=== PATIENT | female | born 1995 | race Caucasian/White ===

== ENCOUNTER 2019-02-01 10:57 | Day surgery (SDC) | payer BC, OTHER ==
[~2019-02-01] VITALS: Ht 167.6 cm; Wt 78.9 kg
[~2019-02-01 10:57] MED LIST: BIRTH CONTROL PILL PO; NITR100CA PO
[2019-02-01] MEDS ORDERED: ESCI10 PO (11:23)
--- NOTE | 2019-02-01 13:19 | NUR ---
02/01/19 1319 Omega Humphrey K-WIRES IN THE PT ARE TWO .054 K-WIRES. THE .062 K-WIRE WAS IN/OUT.
--- NOTE | 2019-02-01 15:25 | NUR ---
Patient up to Ambulate independently. Gait steady. Dressing to procedure site clean, dry, intact with no visible drainage, swelling, erythema or bruising noted. Discharge instructions reviewed with patient. Patient verbalizes understanding. Copy given to patient to take home. Patient States Post-Procedure ride home has been arranged. Discharged via wheelchair to private car for ride home.
== END 2019-02-01 15:28 | disposition home or self-care (01) ==
LOC: ORSCMMR 10:57
PROVIDERS: Orthopaedic Surgery
PROC: 0PSQ34Z Reposition Left Metacarpal with Internal Fixation Device, Percutaneous Approach (ICD-10-PCS; principal; 2019-02-01 12:30)
DX: S62.232A Other displaced fracture of base of first metacarpal bone, left hand, initial encounter for closed fracture (principal)
CPT/HCPCS: A9270-GY; J1100; J2250; J2405; J2704; J3010; J7120

== ENCOUNTER → 2019-06-16 | Outpatient (CLI) | payer BC, OTHER ==
[~2019-06-16] MED LIST changes: +ESCI10 PO
[2019-06-16 09:17] LABS: BASOPHILS ABSOLUTE AUTO 0.07 K/mm3 (0.00-0.23); BASOPHILS PERCENT AUTO 1 % (0-2); EOSINOPHILS ABSOLUTE AUTO 0.11 K/mm3 (0.00-0.68); EOSINOPHILS PERCENT AUTO 1 % (0-6); Hematocrit 41.1 % (33.0-51.0); Hemoglobin 13.7 g/dL (11.5-16.0); IMMATURE GRAN ABSOLUTE AUTO 0.07 K/mm3 (0.00-0.10); IMMATURE GRAN PERCENT AUTO 1 % (0-1); LYMPHOCYTES ABSOLUTE AUTO 1.63 K/mm3 (0.84-5.20); LYMPHOCYTES PERCENT AUTO 15 % (21-46); MONOCYTES ABSOLUTE AUTO 0.58 K/mm3 (0.16-1.47); MONOCYTES PERCENT AUTO 5 % (4-13); Mean Corpuscular HGB 29.5 pg (26.0-34.0); Mean Corpuscular HGB Conc 33.3 g/dL (31.5-36.5); Mean Corpuscular Volume 89 fL (80-100); Mean Platelet Volume 10.9 fL (9.1-12.4); NEUTROPHILS PERCENT AUTO 78 % (41-73); Platelet Count 297 K/mm3 (150-400); RDW Coefficient Variation 12.7 % (11.7-14.2); RDW Standard Deviation 41.1 fL (35.1-46.3); Red Blood Cell Count 4.64 M/mm3 (3.80-5.20); White Blood Cell Count 10.86 K/mm3 (4.00-11.30)
[2019-06-16 09:31] LABS: Alanine Aminotransfer (ALT/SGP 25 U/L (12-78); Albumin, Blood 3.8 g/dL (3.4-5.0); Albumin/Globulin Ratio 0.9 (0.8-1.8); Alk Phos 59 U/L (40-126); Anion Gap 10 mmol/L (6-16); Aspartate Aminotrans (AST/SGOT 13 U/L (12-37); Bilirubin, Total 0.5 mg/dL (0.1-1.0); Blood Urea Nitrogen 10 mg/dL (8-24); Bun/Creatinine Ratio 10.8 (12.0-20.0); CO2, Blood 26 mmol/L (21-32); Calcium, Blood 8.6 mg/dL (8.5-10.1); Chloride, Blood 105 mmol/L (98-108); Creatinine, Blood 0.93 mg/dL (0.40-1.00); Globulin, Blood 4.1 g/dL (2.2-4.0); Glomerular Filtration Rate >60 (60-); Glucose, Blood 92 mg/dL (70-99); Sodium, Blood 141 mmol/L (136-145); Total Protein, Blood 7.9 g/dL (6.4-8.2)
== END | disposition home or self-care (01) ==
LOC: LAB EV 09:12 → LAB SHORT 09:12
PROVIDERS: Physician Assistant
DX: J03.90 Acute tonsillitis, unspecified (principal)
CPT/HCPCS: 80053; 85025; 87081

== ENCOUNTER 2019-12-25 10:20 | Inpatient (IN) | payer BC, OTHER ==
[~2019-12-25] VITALS: Ht 167.6 cm; Wt 66.4 kg
[2019-12-25] MEDS ORDERED: BUPR150ER PO (10:44)
[2019-12-25 10:45] LABS: BASOPHILS ABSOLUTE AUTO 0.09 K/mm3 (0.00-0.23); BASOPHILS PERCENT AUTO 1 % (0-2); EOSINOPHILS ABSOLUTE AUTO 0.08 K/mm3 (0.00-0.68); EOSINOPHILS PERCENT AUTO 1 % (0-6); Hematocrit 40.1 % (33.0-51.0); IMMATURE GRAN ABSOLUTE AUTO 0.05 K/mm3 (0.00-0.10); IMMATURE GRAN PERCENT AUTO 1 % (0-1); LYMPHOCYTES ABSOLUTE AUTO 1.87 K/mm3 (0.84-5.20); LYMPHOCYTES PERCENT AUTO 22 % (21-46); MONOCYTES ABSOLUTE AUTO 0.66 K/mm3 (0.16-1.47); MONOCYTES PERCENT AUTO 8 % (4-13); Mean Corpuscular HGB 29.6 pg (26.0-34.0); Mean Corpuscular HGB Conc 32.4 g/dL (31.5-36.5); Mean Corpuscular Volume 91 fL (80-100); Mean Platelet Volume 10.6 fL (9.1-12.4); NEUTROPHILS PERCENT AUTO 68 % (41-73); Platelet Count 222 K/mm3 (150-400); RDW Coefficient Variation 13.4 % (11.7-14.2); RDW Standard Deviation 45.2 fL (35.1-46.3); Red Blood Cell Count 4.39 M/mm3 (3.80-5.20); White Blood Cell Count 8.65 K/mm3 (4.00-11.30)
[2019-12-25] MEDS ORDERED: Seroquel Xr50 MG PO (10:45)
[2019-12-25] MEDS ORDERED: SUDOGEST PO (10:52)
[2019-12-25 11:02] LABS: Source, Urine Catheter
[2019-12-25 11:03] LABS: Acetaminophen, Random <2.0 ug/mL (10.0-30.0); Ethanol (Alcohol), Blood, Med <3 mg/dL; Salicylate <1.7 mg/dL (2.8-20.0)
[2019-12-25 11:04] LABS: Alanine Aminotransfer (ALT/SGP 23 U/L (12-78); Albumin/Globulin Ratio 1.2 (0.8-1.8); Alk Phos 65 U/L (50-136); Anion Gap 9 mmol/L (6-16); Aspartate Aminotrans (AST/SGOT 19 U/L (12-37); Bilirubin, Total 1.1 mg/dL (0.1-1.0); Blood Urea Nitrogen 9 mg/dL (8-24); Bun/Creatinine Ratio 12.6 (12.0-20.0); CO2, Blood 22 mmol/L (21-32); Calcium, Blood 8.7 mg/dL (8.5-10.1); Chloride, Blood 109 mmol/L (98-108); Creatinine, Blood 0.72 mg/dL (0.40-1.00); Globulin, Blood 3.4 g/dL (2.2-4.0); Glomerular Filtration Rate >60 (60-); Glucose, Blood 111 mg/dL (70-99); Potassium, Blood 3.2 mmol/L (3.5-5.5); Sodium, Blood 140 mmol/L (136-145); Total Protein, Blood 7.4 g/dL (6.4-8.2)
[2019-12-25 11:15] LABS: Bilirubin, Urine Neg (Neg); Blood, Urine 2+ (Neg); Glucose Qualitative, Urine Neg (Neg); Ketones, Urine Neg (Neg); Leukocyte Esterase, Urine Neg (Neg); Nitrite, Urine Neg (Neg); Protein, Urine Neg (Neg); Urobilinogen, Urine NORM (Normal)
[2019-12-25 11:26] LABS: Appearance, Urine Clear (Clear); Color, Urine Yellow (P-Yellow)
[2019-12-25 11:31] LABS: Bacteria Few /hpf; Red Blood Cells, Urine 0-2 /hpf (0-2); Squamous Epithelial Cells Rare /hpf (Few)
[2019-12-25 11:39] LABS: U Amphetamine Screen Not Detected; U Barbituate Screen Not Detected; U Benzodiazapine Screen DETECTED; U Cocaine Screen Not Detected; U Methadone Screen Not Detected; U Methamphetamine Screen Not Detected; U Opiates Screen Not Detected; U Phencyclidine Screen Not Detected
[2019-12-25 11:40] LABS: U Buprenorphine Screen Not Detected; U Cannabinoids Screen DETECTED; U Oxycodone Screen Not Detected; U Propoxyphene Screen Not Detected
--- NOTE | 2019-12-25 19:00 | NUR ---
ASSUMED CARE NOTE: ASSUMED CARE OF PT AT 1900, RECEVIED REPORT FROM JARRETT CASTELLANOS. PT IS DROWSY, UNABLE TO COMMUNICATE NEEDS. MOANS/YELLS INCOHERENTLY. PT IS THRASHING IN BED, UNABLE TO FOLLOW COMMANDS. PT IS IN TATX4 RESTRAINTS, KICKING AND ATTEMPTING TO SIT UP IN BED, FIGHTING RESTRAINTS. PT URINATED SELF, REQUIRED 3 STAFF MEMBERS TO CHANGE LINENS. DURING BED CHANGED PT ATTEMPTED TO KICK AND SWUNG HAND AT STAFF. PT CALMED DOWN WITH THERAPUTIC TOUCH. PT GIVEN ATIVAN FOR AGITATION PER EMAR. PT IS ON RA WITH SPO2 AT 99% PT IN SIT WITH HR AT 105, WHEN CALM HR IN THE 80'S. 1:1 SITTER AT BEDSIDE.
--- NOTE | 2019-12-25 19:45 | NUR ---
CARE ASSUMED/END OF SHIFT PT TO ICU 13 AT 1600, 1:1 MONITORING FOR HIGH RISK SI PRECAUTIONS, PT IN 4 POINT LOCKING RESTRAINTS FOR CONFUSION AND THRASHING, DOES NOT APPEAR TO BE INTENTIONALY TRYING TO HIT OR KICK STAFF AT THIS TIME. HR SIT, THEN DECREASED TO 80'S SINUS WHEN PT SETTLED, BP STABLE, SPO2 >95% ON RA, AFEBRILE. PT HAS BRIEF, INTERMITTENT EPISODES OF SITTING UP IN BED, CALLING OUT, AND PULLING ON RESTRAINTS, IS EASILY REASSURED VERBALLY AND CALMS TO RESTING. UNABLE TO UNDERSTAND PT'S WORDS D/T SLURRING/MUMBLED SPEECH. PT'S MOTHER AT BEDSIDE TO ASSIST WITH ASSESSMENT PAPERWORK, HOLD PAPERWORK COMPLETED. PT RECEIVED 3RD LITER LR BOLUS ON THIS UNIT, EKG COMPLETED AT 1820, RESULTS CALLED TO POISON CONTROL, NO NEW RECOMMENDATIONS RECEIVED. REPORT TO ONCOMING SHIFT.
--- NOTE | 2019-12-25 20:00 | NUR ---
PT'S MOTHER AT BEDSIDE. PT AGITATED AND ATTEMPTED TO GET OUT OF RESTRAINTS WHEN PT'S MOTHER TOUCHES/TALKS TO PATIENT. CHARGE NURSE TUCKER ADVISED MOTHER THAT VISITING HOURS WERE OVER, AND THAT SHE COULD RETURN TO SEE THE PATIENT IN THE AM. PT'S MOTHER STATED SHE UNDERSTOOD, WE REASSURED HER THAT WE WOULD CALL IF ANYTHING CHANGED.
--- NOTE | 2019-12-25 20:20 | NUR ---
IRENA MAT CALLED STATING " WHY DID YOU KICK OUT MY DAUGHTER, SHE HAS THE RIGHT TO BE WITH HER DAUGHTER" TREE WAS EXPLAINED OF VISITING RESTRICTIONS. SHE STATED " I DO NOT CARE, [facility], IT USED TO BE BETTER WHEN FERNY WAS AROUND. YOU MUST NOT HAVE CHILDREN OR ELSE YOU WOULD UNDERSTAND" AGAIN, TREE WAS REMINDED OF VISITING HOURS AND THIS NURSE LISTENED AND REASSURED TREE THAT WE WOULD CARE FOR THE PATIENT AND CALL FAMILY IF ANY CHANGES OCCURED. THE DESICION WAS MADE TO ASK THE MOTHER TO LEAVE, DUE TO PT'S INCREASED AGITATION WHILE MOTHER WAS AT BEDSIDE, AND TO IMPROVE PATIENT SAFTEY.
--- NOTE | 2019-12-25 22:26 | NUR ---
UPDATE: SEZUIRE PADS PLACED ON BED, DUE TO PT THRASHING AROUND AND HITTING HER HEAD AND HANDS AGAINST SIDE RAILS. ATIVAN GIVEN PER EMAR. ATTENDS CHANGED. 1:[address]
--- NOTE | 2019-12-25 23:51 | NUR ---
ATTEMPTED TO PROVIDE ORAL CARE, PT NOT COOPERATING. SHE CONTINUES TO THRASH AROUND IN BED.
--- NOTE | 2019-12-26 00:04 | NUR ---
PT HALLUCINATING, TALKING TO HERSELF, YELLING " FUCK OFF, YOU DID THAT YESTERDAY" SHE LOOKS SIDE TO SIDE AND TALKS IF MULTIPLE PEOPLE ARE IN THE ROOM. PT AGITATED AND PULLING HERSELF DOWN IN BED. WHEN APPROCHED PT WILL ATTEMPT TO GRAB STAFF WITH HANDS.
--- NOTE | 2019-12-26 02:08 | NUR ---
UPDATE: PT HAD THREE SEZUIRES APPROX. 7 MIN APART. ATIVAN GIVEN. UPDATED POISION CONTROL, WHICH RECCOMENDED BENZO AROUND THE CLOCK FOR TX OF SEZUIRES. CALLED PHARMACY REGARDING CHANGE, AWAITING CALL BACK. PT CONTINUES TO HAVE PATENT AIRWAY, 96% ON RA. PT IN SINUS TACH WITH HR IN THE 120'S.
--- NOTE | 2019-12-26 02:28 | NUR ---
UPDATE: POSION CONTROL CALLED AND STATED THAT WE GIVE BENZO LIBERALLY TO PREVENT AGITATION WHICH COULD LEAD TO SEZUIRES. POISION CONTROL STATED THAT IF PT PT BECOMES HYPERTENSIVE, TACHY, AND AGITATED TO ADMINISTER A BENZO, THAT IF PT AIRWAY BECOMES COMPROMISED TO INTUBATED. EKG, AND VBG ORDERED PER POISON CONTROL.
[2019-12-26 02:51] LABS: Base Excess Venous -4.5 mmol/L; Bicarbonate Venous 20.6 mmol/L (24.0-30.0); PO2 Venous 54.2 mmHg (38-42); pH Blood Venous 7.31 (7.34-7.37)
[2019-12-26 03:13] LABS: Alanine Aminotransfer (ALT/SGP 31 U/L (12-78); Albumin, Blood 3.9 g/dL (3.4-5.0); Albumin/Globulin Ratio 1.3 (0.8-1.8); Alk Phos 67 U/L (50-136); Anion Gap 8 mmol/L (6-16); Aspartate Aminotrans (AST/SGOT 47 U/L (12-37); Bilirubin, Total 1.4 mg/dL (0.1-1.0); Blood Urea Nitrogen 7 mg/dL (8-24); Bun/Creatinine Ratio 8.5 (12.0-20.0); CO2, Blood 23 mmol/L (21-32); Calcium, Blood 8.4 mg/dL (8.5-10.1); Chloride, Blood 115 mmol/L (98-108); Creatinine, Blood 0.83 mg/dL (0.40-1.00); Globulin, Blood 3.1 g/dL (2.2-4.0); Glomerular Filtration Rate >60 (60-); Glucose, Blood 86 mg/dL (70-99); Sodium, Blood 146 mmol/L (136-145)
[2019-12-26 03:15] LABS: Source, Urine Catheter
[2019-12-26 03:17] LABS: Bilirubin, Urine Neg (Neg); Blood, Urine 1+ (Neg); Glucose Qualitative, Urine Neg (Neg); Ketones, Urine Neg (Neg); Leukocyte Esterase, Urine Neg (Neg); Nitrite, Urine Neg (Neg); Protein, Urine Neg (Neg); Urobilinogen, Urine NORM (Normal)
[2019-12-26 03:18] LABS: Appearance, Urine Clear (Clear); Color, Urine Yellow (P-Yellow)
[2019-12-26 03:23] LABS: Red Blood Cells, Urine 0-2 /hpf (0-2); Squamous Epithelial Cells Many /hpf (Few); White Blood Cells, Urine 0-2 /hpf (0-5)
[2019-12-26 03:24] LABS: Bacteria Mod /hpf
--- NOTE | 2019-12-26 03:30 | NUR ---
CALLED , UPDATED HIM ON PT'S STATUS. ORDERS TO START KEPPRA GIVEN. ADVISED DR ON POISION CONTOL RECOMMENTATIONS. TEMP OCASIO PLACED, 1000ML OUTPUT, DIMITRIS IN COLOR, CLOUDY, SAMPLE SEMT TO LAB. PT ON 2L OF OF VIA NC, SPO2 AT 98% PT IS CALM, AROUSES TO PAINFUL STIMULI. PT IN SINUS TACH WITH HR AT 106.
--- NOTE | 2019-12-26 04:26 | NUR ---
AT BEDSIDE EVALUATING PT.
--- NOTE | 2019-12-26 05:17 | NUR ---
UPDATE CALLED UPDATE MOTHER ON PT'S CONDITION. ADVISED SHE COULD COME VISIT AT 7AM.
--- NOTE | 2019-12-26 05:43 | NUR ---
SHIFT SUMMARY: SEE PREVIOUS NOTES. PT CONTINUES TO BE RESPONSIVE TO PAINFUL AND VERBAL STIMULUS. PT YELLS AND THRASHES IN BED OCCASIONALLY. NO SEZUIRES SINCE ATIVAN INCREASED TO Q1HR, AND KEPPRA DOSE GIVEN. PT IS NOW ON SOFT RESTRAINTSX4. PT REQUIRED ORAL SUCTION POST SEZUIRES, PT BIT DOWN ON TONGUE DURING SEZUIRE, SLIGHT SWELLING AND BLEEDING NOTED. PT IS NOW IN SINUS RYTHYM WITH HR IN THE 90'S, OCCASIONAL 105 WHEN AGITATED. PT IS ON RA WITH SPO2 AT 99% VITALS STABLE. PT HAS A TEMP OCASIO, DRAINING DIMITRIS COLORED URINE WITH SEDIMENT. NO BM THIS SHIFT. 1:1 SITTER AT BEDSIDE.
--- NOTE | 2019-12-26 07:29 | NUR ---
Received report from Sharon CASTELLANOS. Patient supine in bed and is in 4 point soft extremity restraints. She has multiple bruising t/o distal extremities. She opens eyes to verbal stimuli, but minimal soeech that is mumbled. Her pupils are #5 bilateral equal and reactive. She is on RA and sats in the upper 90%'s. She has IV to RH and dressing intact and site WNL'sand is infusing 1/2 NS at 75ml/hr. She also has IF to LFA dressing intact and site WNL's and is flushed and SL'd. She has 18Fr temp watson draining to gravity light nehal urine. She has twitching and constantly moving in bed, and moving head back and forth mumbbling out with occassional out burst.
--- NOTE | 2019-12-26 08:17 | NUR ---
One on one sitter in room. We gave bath and patient has two piercings posterior hips bilateral nipples, left nares, several belly button. Linens changed as well. Patient tolerated well.
--- NOTE | 2019-12-26 11:30 | NUR ---
Continue to medicate per MAR for agitation with Ativan 2mg. Patient continues to move aroun bed and twiching with constant head movement . She has occassional burst of speech and archs in bed. Sitter in room at all times and on camera. Mother by for about 1.5 hours and called back grandma and gave update.
--- NOTE | 2019-12-26 13:30 | NUR ---
Patient has been resting quietly for about an hour. Mother and family formulation chemist at bedside. Patient remains on RA and sats >90%. Pupils bilateral #4 and sluggish. She remains on 1/2NS at 75 ml. Agudelo out put good at greater than 100ml/hr. VSS
--- NOTE | 2019-12-26 15:25 | NUR ---
Patient is starting to awake and have rapid movements. No sign of seizures as of yet. Continue to medicate with ativan when agitation increases. VSS. Mother back at bedside. Repositioned patient. Patient still opens eyes to verbal stimuli and does not track, pupils sluggish and bilateral #4. MAEW but gross movements, no senseable movements. Poison control called and requested labs and contacted Dr Randhawa for order.
[2019-12-26 15:30] LABS: Base Excess Venous -4.5 mmol/L; Bicarbonate Venous 21.5 mmol/L (24.0-30.0); PO2 Venous 60.8 mmHg (38-42); pH Blood Venous 7.43 (7.34-7.37)
[2019-12-26 15:44] LABS: Albumin, Blood 3.1 g/dL (3.4-5.0); Anion Gap 8 mmol/L (6-16); Blood Urea Nitrogen 5 mg/dL (8-24); Bun/Creatinine Ratio 7.6 (12.0-20.0); CO2, Blood 20 mmol/L (21-32); Calcium, Blood 7.1 mg/dL (8.5-10.1); Chloride, Blood 111 mmol/L (98-108); Creatinine, Blood 0.65 mg/dL (0.40-1.00); Glomerular Filtration Rate >60 (60-); Glucose, Blood 58 mg/dL (70-99); Phosphorus, Blood 3.1 mg/dL (2.5-4.9); Potassium, Blood 3.3 mmol/L (3.5-5.5); Sodium, Blood 139 mmol/L (136-145)
--- NOTE | 2019-12-26 18:30 | NUR ---
Taked with poison control and they advised to increase Ativan if patient flailing and extreme body movements increase and advised Dr Randhawa of [facility]. Increased Ativan to 1-4mg Q1 for agitation. VSS, HR remains ST 90-110's. Post labs requested by Poison control gave 40 meq potassium IV per Dr Randhawa. Patient increased yelling out but very hard to understand from swollen tongue that she bit during seizure event last night. Agudelo continues to drain to gravity yellow urine in adequate amounts.
--- NOTE | 2019-12-26 19:00 | NUR ---
ASSUMED CARE ASSUMED CARE OF PATIENT. PT IS RESTING QUIETLY AT THIS TIME. OCCASIONAL PERIODS OF AGITATION AND RESTLESSNESS CONTINUE. PT OCCASIONALLY CALLS/YELLS OUT. SPEECH IS MUMBLED. MOVES ALL EXTREMITIES. NOT FOLLOWING ANY COMMANDS. SOFT RESTRAINTS IN PLACE TO BILATERAL WRISTS AND ANKLES. 1/2NS INFUSING @ 75CC/HR. KCL 20mEq IVPB INFUSING PER ORDER. NPO. MONITOR SHOWS NST-ST, RATE 90s-100s. BP STABLE. OCASIO PATENT AND DRAINING CLEAR YELLOW URINE. SEE SHIFT ASSESSMENT FOR FULL ASSESSMENT.
[2019-12-27 00:29] LABS: Anion Gap 7 mmol/L (6-16); Blood Urea Nitrogen 6 mg/dL (8-24); Bun/Creatinine Ratio 7.6 (12.0-20.0); CO2, Blood 23 mmol/L (21-32); Calcium, Blood 8.4 mg/dL (8.5-10.1); Chloride, Blood 110 mmol/L (98-108); Creatinine, Blood 0.79 mg/dL (0.40-1.00); Glomerular Filtration Rate >60 (60-); Glucose, Blood 74 mg/dL (70-99); Phosphorus, Blood 2.7 mg/dL (2.5-4.9); Potassium, Blood 3.8 mmol/L (3.5-5.5); Sodium, Blood 140 mmol/L (136-145)
--- NOTE | 2019-12-27 03:45 | NUR ---
POISON CONTROL CALL TO POISON CONTROL FOR RECOMMENDATIONS REGARDING CONTINUED AGITATION DESPITE ATIVAN Q1-2HRS. ACCORDING TO THE POLICE COMMISSIONER ON STAFF, THEY RECOMMEND CONTINUED ATIVAN UP TO Q30 MINUTES IF NEEDED. ALSO STATED THAT PRECEDEX COULD BE HELPFUL, BUT BEST CHOICE IS ATIVAN.
--- NOTE | 2019-12-27 04:00 | NUR ---
RESTRAINTS/CALL TO MD PT WITH SEVERE AGITATION. THRASHING IN BED, PULLED OUT RIGHT HAND IV AND OCASIO CATHETER WITH THRASHING. RESTRAINTS CHANGED TO TAT X ALL 4 EXTREMITIES AT THIS TIME. ATIVAN GIVEN. OCASIO REPLACED. DR. MCMAHON UPDATED ON PT'S ACTIVITY AND OF POISON CONTROL'S RECOMMENDATION. NEW ORDERS RECEIVED TO INCREASE ATIVAN TO Q30 MINUTES NEEDED.
--- NOTE | 2019-12-27 06:33 | NUR ---
SHIFT SUMMARY PT CONTINUES WITH PERIODS OF SEVERE AGITATION AND THRASHING IN BED. MEDICATED WITH ATIVAN 4MG IV Q1-2H T/O MOST OF SHIFT AND THEN INCREASING TO APPROXIMATELY Q30 MINUTES FOR LAST FEW HOURS OF SHIFT. FREQUENTLY YELLS OUT. SOFT RESTRAINTS CHANGED TO TAT RESTRAINTS TO ALL 4 EXTREMITIES AT 0400. OCASIO CATHETER AND PERIPHERAL IV REPLACED AFTER PT PULLED OUT WITH THRASHING. SPEECH IS MUMBLED. DOES NOT FOLLOW ANY COMMANDS. MOVES ALL EXTREMITIES. TACHYCARDIA NOTED WITH AGITATION. BP STABLE. REMAINS ON RA. RESPIRATIONS EVEN AND UNLABORED. OCASIO WITH GOOD OUTPUT. WILL REPORT TO ONCOMING RN WHEN AVAILABLE.
--- NOTE | 2019-12-27 08:00 | NUR ---
Received report from Billie CASTELLANOS. Patient thrashing violently in bed with intermitent pauses, screaming out. She is in 4 point TAT restraints and pulling at them constantly. She opoens eye to verbal stimuli but does not track or follow directions. Her pupils 4's bilaterally and very sluggish. She is on RA and sats 94%. She has 20ga IV in LH and dressing changed and is infusing Precedex at 1.4 mcg/kg/hr as per order from Dr. Whitney after speaking with Dr Randhawa to get consult for possible intubation for safety. VSS, See EMR. She has new 18Fr temp watson that was replaced on NOC shift after patient pulling out by thrashing around in bed. Bruising on all extremities from prior to visit and a couple on her face. She has two piercings on posterior bilateral hip, bilateral bars on nipples and several in belly. Oral care done. Mother was by and then left. hips
--- NOTE | 2019-12-27 10:10 | NUR ---
Dr Whitney by and saw patient and asked to give another dose of Ativan. IV getting loose from patient thrashing. After dose of Ativan patient seem to relax and went to start PowerGlide in LAUREN and started to thrash around again. Had three staff members help keep her safe from moving and was able to place 18ga 10cm PowerGlide LAUREN. She is continuesd to thrash around in bed and started 1st dose Phenobarbital 260 mg over 15 minutes and she is very calm and relaxed. Pulled LFA IV as it was leaking. Precedex at 1.4 mcg/kg/hr continues and fluids changed to LR at 75ml/hr. One on one sitter at bedside, and she remains in 4 point TAT restraints.
--- NOTE | 2019-12-27 12:00 | NUR ---
Patient continues to rest quietly, Precedex continues at 0.7 mcg/kg hr hour and just dropped from 1.4 mcg/kg/hr. LR at 75ml/hr. Mother has been gone for about an hour. VSS, See EMR. Agudelo continues tro draingto gravity nehal colored urine > 30ml/hr. Pupils remian at 5 and sluggish. trying to reduce stimuli for rest.
--- NOTE | 2019-12-27 14:00 | NUR ---
No significant changes from 1200 note, patient still resting quietly with no stiulation. VSS, See EMR.
--- NOTE | 2019-12-27 16:00 | NUR ---
Started patient bath at 1530 and the stimulation from warm washcloth awoke her and she has started to thrash in bed. Started 2nd dose of Phenobarbital at 1530 and has had little affect in the last 30 minutes. We are going to give 10 Valium. Placed on 4L O2 via NC for sats decreased to high 80's as when thrashing and screaming sats dropped. Mother at bedside consoling. Patient remains ST and systolic 120's. Still thrashing and screaming in bed.
--- NOTE | 2019-12-27 18:10 | NUR ---
Patient continued to yeal and thrash in bed and 2nd dose of Valium with little affect. Taked with Dr Whitney and we [id number] to try Versed to try to relax her so other meds will work. Gave 4 mg versed and patient took a couple munites to relax and has been calm and quiet since. Precedex was increased to 1.4 just after 2nd dose Phenobarbital was done with little affect while hyper manic. LR at 75 ml/hr, Precedex 1.4 mcg/kg/hr VSS, See EMR. She remains on 4L O2 via NC and sats 98%. Sitter at bedside and will make no stimuli for patient to rest. Dr Whitney DC'd Phenobarbitol order and if needed please call. Current request 10 valium, then 10mg Valium, then 4 mg Versed.
--- NOTE | 2019-12-27 20:43 | NUR ---
ASSUMED CARE AT 1900 PT LAYING IN BED SLEEPING. PRECEDEX INFUSING AT 1.4MCG/KG/HR THROUGH LAUREN POWERGLIDE. 4 POINT TAT'S IN USE. OCASIO IN PLACE AND DRAINING TO GRAVITY. 4L NC O2 SATS >95%. SEE SHIFT ASSESSMENT FOR FULL ASSESSMENT.
[2019-12-28 04:05] LABS: Anion Gap 9 mmol/L (6-16); Blood Urea Nitrogen 7 mg/dL (8-24); Bun/Creatinine Ratio 10.1 (12.0-20.0); CO2, Blood 20 mmol/L (21-32); Calcium, Blood 8.2 mg/dL (8.5-10.1); Chloride, Blood 109 mmol/L (98-108); Glomerular Filtration Rate >60 (60-); Glucose, Blood 84 mg/dL (70-99); Magnesium, Blood 1.8 mg/dL (1.6-2.4); Phosphorus, Blood 2.6 mg/dL (2.5-4.9); Potassium, Blood 3.8 mmol/L (3.5-5.5); Sodium, Blood 138 mmol/L (136-145)
[2019-12-28 04:08] LABS: CPK Creatine Kinase 3574 U/L (26-193)
--- NOTE | 2019-12-28 04:38 | NUR ---
POTASSIUM AND MAGNISIUM REPLACEMENT DR LOPEZ NOTIFIED AT 0433 ABOUT PT POTASSIUM AND MAGNISIUM LABS DUE TO POISON CONTROL WANTING POTASSIUM >4 AND MAGNISIUM >2. NEW ORDERS WERE PROVIDED.
--- NOTE | 2019-12-28 06:37 | NUR ---
END OF SHIFT SUMMARY PT SLEPT FOR MOST OF THE NIGHT UNTIL 0530, THEN PT STARTED TO WAKE UP AND TALK TO SITTER AND RN. PT WAS CONFUSED ABOUT WHERE AND WHY SHE IS HERE BUT WAS COOPERATIVE AND CALM. PRECEDEX INFUSING AT 1.2MCG/KG/HR. RESTRAINTS D/C'D THIS SHIFT. HR 80-110. SBP 90-125. 4L NC O2 SAT >95%. TMAX 101.3. OCASIO PATENT AND DRAINING TO GRAVITY. WILL REPORT TO AM RN WHEN AVAILABLE.
--- NOTE | 2019-12-28 06:55 | NUR ---
ELEVATED TEMP CALLED DR VALENZUELA REGARDING ELEVATED TEMP OF 101.8. NEW ORDERS PROVIDED.
[2019-12-28 07:07] LABS: BASOPHILS ABSOLUTE AUTO 0.08 K/mm3 (0.00-0.23); BASOPHILS PERCENT AUTO 1 % (0-2); EOSINOPHILS ABSOLUTE AUTO 0.24 K/mm3 (0.00-0.68); EOSINOPHILS PERCENT AUTO 2 % (0-6); Hematocrit 40.8 % (33.0-51.0); Hemoglobin 13.2 g/dL (11.5-16.0); IMMATURE GRAN PERCENT AUTO 1 % (0-1); LYMPHOCYTES ABSOLUTE AUTO 2.04 K/mm3 (0.84-5.20); LYMPHOCYTES PERCENT AUTO 14 % (21-46); MONOCYTES ABSOLUTE AUTO 0.89 K/mm3 (0.16-1.47); MONOCYTES PERCENT AUTO 6 % (4-13); Mean Corpuscular HGB 30.1 pg (26.0-34.0); Mean Corpuscular HGB Conc 32.4 g/dL (31.5-36.5); Mean Corpuscular Volume 93 fL (80-100); NEUTROPHILS PERCENT AUTO 77 % (41-73); Platelet Count 209 K/mm3 (150-400); RDW Coefficient Variation 13.1 % (11.7-14.2); RDW Standard Deviation 44.3 fL (35.1-46.3); Red Blood Cell Count 4.39 M/mm3 (3.80-5.20); White Blood Cell Count 14.45 K/mm3 (4.00-11.30)
--- NOTE | 2019-12-28 07:30 | NUR ---
ASSUMED CARE: PT RESTING IN BED, PRECEDEX GTT AT 1 MCG/KG/MIN AT THIS TIME. RESTING QUIETLY, NSR TO SINUS TACH IN LOW 100S. NO FURTHER NEEDS AT THIS TIME.
--- NOTE | 2019-12-28 08:30 | NUR ---
PT AWAKE AND TEARFUL, CONFUSED ABOUT WHAT HAPPENED. STATES SHE DOES NOT REMEMBER HER DUI OR TAKING MEDS. ASKS IF SHE CAN SEE HER BOYFRIEND OR CALL HIM. MADE PT AWARE OF PHONE POLICY AND THAT SHE IS ALLOWED 1-2 PHONE CALLS A DAY, 5 MINUTES AT A TIME. MADE AWARE THAT HER MOTHER CALLED AND IS PLANNING TO COME VISIT. WANTS HER BOYFRIEND TO VISIT INSTEAD. ATTEMPTING TO FIND PHONE TO ASSIST WITH PHONE CALL.
--- NOTE | 2019-12-28 09:30 | NUR ---
MOTHER AT BEDSIDE AND PT IS TEARFUL. WANTS TO SEE AND TALK TO HER BOYFRIEND. MOTHER EXPLAINED TO HER THAT SHE HAS BEEN KEEPING BOYFRIEND UPDATED.
--- NOTE | 2019-12-28 10:30 | NUR ---
KINGSLEY WOODS AT BEDSIDE PERFORMING SAFETY PLAN
--- NOTE | 2019-12-28 12:02 | NUR ---
Suicide Safety Plan interview complete. Plan given to patient. Patient is a 24 year old female. 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 She reports her cousin Elodia, age 17 or 18, lives with her currently due to having difficulties with her mother. Pt was alone and reports she does not recall taking the pills. She was unable to identify any stressors that would have led to the OD. Later she did identify that she had missed work due to depression. Again unable to idetify signs and symptoms that she had. She did recall that her PCP Matthew had prescribed meds. she reports having panic attacks, and "rides them out" She has shortness of breath and tremors. She reports she was "suicidal thouthout childhood", but unable to more detail. Patient would like a counselor, and stated she had been thinking of finding one. Pt became tearful at times saying 'I am 24, I should bbe and doing those sorts of things.". Pt became very focused on wanting to talk with her boyfriend, and stated she could only have 1 visitor a day and her mom had already visited. Pt became sleepy and interview was ended. Pt.was able to smile during interview, but orientation foggy on ability to relay details when asked questions. Labor Relations Consultant will be contacted to investigate counselor for f/u if patient DC home. Martha Agrawal M.Ed., [facility], [facility]
--- NOTE | 2019-12-28 12:10 | NUR ---
PT ASKED TO SPEAK WITH BOYFRIEND AGAIN. INSTRUCTED THAT SHE CAN HAVE 1 PHONE CALL FOR 5 MINUTES. PT WAS COMPLIANT WITH THIS. CONTINUES TO STATE SHE WANTS TO GO HOME AND HAS BEEN MADE AWARE THAT DR SMITH CALLED AND IS PLANNING TO SEE HER TODAY. INSOLE DOUBLER AT BEDSIDE
--- NOTE | 2019-12-28 16:00 | NUR ---
DR SMITH CAME TO SEE PT AND STATED THAT MODERATE RISK WAS NEEDED AND SITTER WAS RELEASED. PRECEDEX STOPPED. DR JACOBSON PLAN TO MONITOR OVERNIGHT AND TO DISCUSS MEDS AND OUTPT OPTIONS TOMORROW. PT'S MOTHER AT BEDSIDE AND AWARE
--- NOTE | 2019-12-28 18:11 | NUR ---
SHIFT SUMMARY: PT IS PCU STATUS AT THIS TIME. SHE HAS BEEN OFF PRECEDEX SINCE 1600 AND TOLERATING WELL. TEARFUL AT TIMES. MOTHER AT BEDSIDE T/O DAY. OCASIO OUT AND PT SBA TO BSC. DR SMITH PLANS TO RETURN TOMORROW TO DISCUSS OUTPT PLANS WITH PT AND FAMILY. NO ACUTE NEEDS AT THIS TIME.
[2019-12-29 04:03] LABS: BASOPHILS ABSOLUTE AUTO 0.09 K/mm3 (0.00-0.23); BASOPHILS PERCENT AUTO 1 % (0-2); EOSINOPHILS ABSOLUTE AUTO 0.23 K/mm3 (0.00-0.68); EOSINOPHILS PERCENT AUTO 2 % (0-6); IMMATURE GRAN ABSOLUTE AUTO 0.17 K/mm3 (0.00-0.10); IMMATURE GRAN PERCENT AUTO 1 % (0-1); LYMPHOCYTES PERCENT AUTO 9 % (21-46); MONOCYTES ABSOLUTE AUTO 0.86 K/mm3 (0.16-1.47); MONOCYTES PERCENT AUTO 6 % (4-13); Mean Corpuscular HGB 29.6 pg (26.0-34.0); Mean Corpuscular HGB Conc 32.4 g/dL (31.5-36.5); Mean Corpuscular Volume 91 fL (80-100); Mean Platelet Volume 11.4 fL (9.1-12.4); NEUTROPHILS ABSOLUTE AUTO 12.99 K/mm3 (1.96-9.15); NEUTROPHILS PERCENT AUTO 82 % (41-73); Platelet Count 229 K/mm3 (150-400); RDW Coefficient Variation 13.1 % (11.7-14.2); RDW Standard Deviation 43.5 fL (35.1-46.3); Red Blood Cell Count 4.05 M/mm3 (3.80-5.20); White Blood Cell Count 15.74 K/mm3 (4.00-11.30)
[2019-12-29 04:32] LABS: Albumin, Blood 3.2 g/dL (3.4-5.0); Anion Gap 8 mmol/L (6-16); Blood Urea Nitrogen 5 mg/dL (8-24); Bun/Creatinine Ratio 8.1 (12.0-20.0); CO2, Blood 23 mmol/L (21-32); Calcium, Blood 8.3 mg/dL (8.5-10.1); Chloride, Blood 108 mmol/L (98-108); Creatinine, Blood 0.62 mg/dL (0.40-1.00); Glomerular Filtration Rate >60 (60-); Glucose, Blood 81 mg/dL (70-99); Phosphorus, Blood 2.6 mg/dL (2.5-4.9); Potassium, Blood 3.6 mmol/L (3.5-5.5); Sodium, Blood 139 mmol/L (136-145)
[2019-12-29 04:36] LABS: CPK Creatine Kinase 4676 U/L (26-193)
--- NOTE | 2019-12-29 06:32 | NUR ---
pt rested comfortably through night pt really hopeful to go home today. no signs of distress/signs of wanting to harm self ao room air tele nsr no pain vss voiding no bm call light within reach. bed in lowest position. will continue to monitor.
--- NOTE | 2019-12-29 08:14 | NUR ---
pt sitting on side of bed a/ox3, pleasant and cooperative with care, follows commands well, denies any complaints, states she did not sleep well, is asking to go home, told her we need to wait for lungs clear, hrr, sr on monitor, caitlin parra, ambulating indep, skin has some scratches bruises to fa's and wrists, boy friend in room with her. camera on.
--- NOTE | 2019-12-29 12:16 | NUR ---
pt boyfriend in room with her, she is tearful, Dr. Gunter was in to see her and recommends in pt. tx. notified Dr. Randhawa, and case mgmt. call light in reach.
--- NOTE | 2019-12-29 18:55 | NUR ---
pt has been tearful through out the day, boyfriend and mom have been in to see her. she states she's tired, did give her a dose of benedryl for hives on her arms. no further changes this shift. call light in reach.
--- NOTE | 2019-12-30 05:25 | NUR ---
SHIFT SUMMARY PT A&O X4; DENIES SI PLAN; CAMERA ON IN ROOM; VSS; DENIES CHEST PAIN; NSR NOTED ON TELE W/ HR 80'S-90'S; HR UP TO 128 W/ AMBULATION; PT ASKING IF SHE CAN BE DC'D HOME W/ MOM TODAY; CALL LIGHT IN REACH; BED IN LOWEST POSITION; WILL CONTINUE TO MONITOR CLOSELY UNTIL HAND OFF TO DAY SHIFT RN.
--- NOTE | 2019-12-30 08:52 | NUR ---
AM SHIFT NOTE PT RESTING IN BED; NO DISTRESS NOTED. A&O; DENIES SUICIDAL IDEATION AND DEPRESSION; STATES THAT SHE DOES NOTE WANT TO HURT HERSELF AND NO LONGER HAS SUICIDAL THOUGHTS. PT ON 2 MD HOLD; PLANS TO TRANSFER TO PSYCH UNIT AT [facility]. PT MADE AWARE OF DISCHARGE PLANS BY DR FIELDS THIS AM. PT PERSISTANT THAT SHE IS GOING TO DISCHARGE HOME WITH HER MOTHER. PT DENIES PAIN, CHEST PAIN, SOB. NASUEA AND DIZZINESS. LS CLEAR; BREATHING EVEN AND UNLABORED; SPO2 >94% ON RA. BS HYPERACTIVE x4 QUAD. NO OTHER ACUTE CHANGES. WILL CONTINUE TO MONITOR. PT ROOM REMITIGATED THIS AM; WIRES AND PERSONAL BELONGING REMOVED FROM ROOM OR LOCKED IN CLOSET; CELL PHONE AND CHARGING CABLE REMOVED. BOYFRIEND AT BEDSIDE; EDUCATED PT AND BF OF VISITATION POLICY AND CHECKING IN WITH NURSE STATION PRIOR TO ENTERING ROOM. WILL CONTINUE TO MONITOR.
--- NOTE | 2019-12-30 17:19 | NUR ---
SHIFT SUMMARY PT HR 60-80'S WHILE AWAKE; 40-50'S WHILE SLEEPING; NOTIIFED DR FIELDS; NO NEW ORDERS. CLARIFIED ORDERS FOR IV FLUIDS; PER DR FIELDS D/C IV FLUIDS. NO OTHER ACUTE CHANGES NOTED. PT CONTINUES TO PUSH BOUNDRIES WITH VITIORS AND PHONE CALLS. OTHER VSS. WILL CONTINUE TO MONITOR UNITL REPORT GIVEN TO ONCOMING RN.
--- NOTE | 2019-12-30 19:15 | NUR ---
ASSUMED CARE OF PT. REPORT RECEIVED FROM CALLY CASTELLANOS. PT RESTING IN BED, VISITING WITH BOYFRIEND. CALL LIGHT WITHIN REACH. PTS BOYFRIEND STATED HE IS GETTING READY TO LEAVE.
[2019-12-31 05:01] LABS: Hemoglobin 11.6 g/dL (11.5-16.0); Mean Corpuscular HGB 29.2 pg (26.0-34.0); Mean Corpuscular HGB Conc 32.2 g/dL (31.5-36.5); Mean Corpuscular Volume 91 fL (80-100); Mean Platelet Volume 11.6 fL (9.1-12.4); Platelet Count 247 K/mm3 (150-400); RDW Coefficient Variation 13.1 % (11.7-14.2); RDW Standard Deviation 43.2 fL (35.1-46.3); Red Blood Cell Count 3.97 M/mm3 (3.80-5.20)
--- NOTE | 2019-12-31 05:35 | NUR ---
SHIFT SUMMARY PT SLEPT THROUGH MOST OF SHIFT, NO ACUTE CHANGES IN STATUS. PT HAS REMAINED EMTIONALLY STABLE THROUGH SHIFT. WILL CONTINUE TO MONITOR
--- NOTE | 2019-12-31 08:00 | NUR ---
AM NOTE - LATE ENTRY PT RESTING IN BED; SBA IN ROOM. PT A&Ox4; CALM AND COOPERATIVE WITH CARE. PT DENIES PAIN, CHEST PAIN, SOB, NAUSEA AND DIZZINESS. BOYFRIEND AT BEDSIDE THIS AM. VSS. PT DENIES SUICIDAL THOUGHTS. PT STATES SHE WANTS TO GO HOME TODAY; REEDUCATED PT REGARDING DISCHARGE PLANS FOR [facility]. WILL CONTINUE TO MONITOR.
--- NOTE | 2019-12-31 10:20 | NUR ---
PT UP TO SHOWER; HR 130'S AND PT REPORTING CHEST PAIN; WORSE WITH MOVEMENTS WITH SHOULDER. RESOLVED WHILE PT AT REST AND HR AT 77. NOTIFIED DR FIELDS; TO PLACE ORDERS.
[2019-12-31 12:51] LABS: Thyroid Stimulating Hormone 0.414 uIU/mL (0.360-4.800); Troponin I <0.015 ng/mL (0.000-0.040)
--- NOTE | 2019-12-31 17:39 | NUR ---
SHIFT SUMMARY PT REPORT CHEST PAIN AND RESOLVED THIS AFTERNOON. NO OTHER ACUTE CHANGES. PT CONTINUES TO BE PERSISTANT THAT SHE WANTS TO GO HOME WITH HER MOTHER; PT EDUCATED ON PLAN FOR DISCHARGE TO ON LICENSE OF [facility]. S. NO OTHER ACUTE CHANGES NOTED DUIRNG SHIFT. WILL CONTINUE TO MONITOR UNTIL REPORT GIVEN TO ONCOMING RN.
--- NOTE | 2020-01-01 07:37 | NUR ---
RECEIVED REPORT FROM JASMIN ROBERTSON. ASSUMING CARE OF PT. PT IS RESTING QUIETLY ON LEFT SIDE WITH EYES CLOSED, RESPIRATIONS EVEN AND UNLABORED.
--- NOTE | 2020-01-01 12:56 | NUR ---
PT'S MOTHER HAS BEEN IN FOR VISITATION THIS AM. PT AND PT'S MOTHER STATE PT IS MOVING IN WITH MOTHER TO ALLEVIATE ABRASIVE LIVING SITUATION. PT ASKING TO DC HOME TODAY, STATES "I JUST NEED A COUNSELOR AROUND TOWN", PT AND MOTHER REMINDED OF PLAN OF TRANSFER TO IN PATIENT FACILITY. PT'S MOTHER ALSO BROUGHT SOME PT BELONGINGS AND IS ASKING TO HAVE THEM IN THE ROOM. THIS RN EXPLAINED WHY PERSONAL BELONGINGS ARE NOT ALLOWED IN ROOM, BUT THAT WE ARE HAPPY TO SECURE THE BELONGINGS FOR PT AND TRANSFER THEM WITH HER. PT CONTINUES TO REQUEST DC HOME. ANUJ, CARE MANAGEMENT RN, TO ROOM TO STATE THAT DR SMITH WILL COME IN FOR EVAL AT APPROX 1400. IF HE CONTINUES TO BELIEVE PT NEEDS IN PATIENT TREATMENT, THE PLAN FOR TRANSFER WILL CONTINUE. PT VERBALIZES UNDERSTANDING. PLAN IS TO UPDATE PT'S MOTHER AFTER EVAL BY DR SMITH.
[2020-01-01] MEDS ORDERED: LEVO750 PO (14:06)
[2020-01-01] MEDS ORDERED: PARO20 PO (14:07)
== END 2020-01-01 15:25 | disposition home or self-care (01) | DRG 917 ==
LOC: ER 10:20 → ERHOLD 10:21 → ICUW 15:33 → PCU 12-28 19:19
PROVIDERS: Emergency Medicine; Internal Medicine; Internal Medicine Critical Care Medicine; Nurse Practitioner Acute Care; ADMIT Internal Medicine
DX: T43.592A Poisoning by other antipsychotics and neuroleptics, intentional self-harm, initial encounter (principal); G92 Toxic encephalopathy; J69.0 Pneumonitis due to inhalation of food and vomit; A41.9 Sepsis, unspecified organism; M62.82 Rhabdomyolysis; F33.9 Major depressive disorder, recurrent, unspecified; T42.4X2A Poisoning by benzodiazepines, intentional self-harm, initial encounter; T43.292A Poisoning by other antidepressants, intentional self-harm, initial encounter; Y92.9 Unspecified place or not applicable; T14.91XA Suicide attempt, initial encounter; E87.6 Hypokalemia; I45.81 Long QT syndrome; G40.409 Other generalized epilepsy and epileptic syndromes, not intractable, without status epilepticus; F41.0 Panic disorder [episodic paroxysmal anxiety]
CPT/HCPCS: 36415; 51701; 51702; 71045; 80048; 80053; 80069; 81001; 81025; 82550; 82803; 83735; 84100; 84132; 84443; 84484; 85025; 85027; 93005; 93010; 96361; 96365; 96372; 96374; 96375; 96376; 99285-25; A9270; C1751; G0378; G0480; J1200; J1650; J1953; J2060; J2250; J2560; J3360; J3475; J3480; J7120

== ENCOUNTER → 2020-01-08 | Outpatient (CLI) | payer BC ==
[~2020-01-08] MED LIST changes: +BUPR150ER PO; +LEVO750 PO; +PARO20 PO; +SUDOGEST PO; +Seroquel Xr50 MG PO
[2020-01-08 21:25] LABS: Percent Saturation 42.8 % (15.0-50.0)
== END ==
LOC: LAB SHORT 18:15 → LAB 18:15
PROVIDERS: Hospitalist
DX: R53.83 Other fatigue (principal)
CPT/HCPCS: 82728; 83540; 83550

== ENCOUNTER 2022-08-27 06:57 | Inpatient (IN) | payer BC, OTHER ==
[2022-08-27] VITALS (29 sets, daily range): BP systolic 99–152; BP diastolic 52–83
[~2022-08-27] VITALS: Ht 167.6 cm; Wt 94.5 kg
[~2022-08-27 06:57] MED LIST changes: +IBUP800 PO
[2022-08-27 08:05] LABS: BASOPHILS ABSOLUTE AUTO 0.06 K/mm3 (0.00-0.23); BASOPHILS PERCENT AUTO 1 % (0-2); EOSINOPHILS ABSOLUTE AUTO 0.12 K/mm3 (0.00-0.68); EOSINOPHILS PERCENT AUTO 1 % (0-6); Hematocrit 37.2 % (33.0-51.0); Hemoglobin 12.8 g/dL (11.5-16.0); IMMATURE GRAN ABSOLUTE AUTO 0.25 K/mm3 (0.00-0.10); IMMATURE GRAN PERCENT AUTO 2 % (0-1); LYMPHOCYTES ABSOLUTE AUTO 2.25 K/mm3 (0.84-5.20); LYMPHOCYTES PERCENT AUTO 19 % (21-46); MONOCYTES ABSOLUTE AUTO 0.67 K/mm3 (0.16-1.47); MONOCYTES PERCENT AUTO 6 % (4-13); Mean Corpuscular HGB Conc 34.4 g/dL (31.5-36.5); Mean Corpuscular Volume 87 fL (80-100); Mean Platelet Volume 12.6 fL (9.1-12.4); NEUTROPHILS ABSOLUTE AUTO 8.49 K/mm3 (1.96-9.15); NEUTROPHILS PERCENT AUTO 72 % (41-73); Platelet Count 201 K/mm3 (150-400); RDW Coefficient Variation 13.9 % (11.7-14.2); RDW Standard Deviation 44.1 fL (35.1-46.3); Red Blood Cell Count 4.26 M/mm3 (3.80-5.20); White Blood Cell Count 11.84 K/mm3 (4.00-11.30)
[2022-08-27] MEDS ORDERED: PRENATAL 19 TA1 EAC3 PO (08:16)
[2022-08-28 00:18] VITALS: BP 110/56
[2022-08-28 04:20] VITALS: BP 105/55
[2022-08-28 08:08] VITALS: BP 116/66
--- NOTE | 2022-08-28 10:45 | NUR ---
REVIEWED WRITTEN DISCHARGE INSTRUCTIONS NO QUESTIONS AT THIS TIME, VERBALIZED UNDERSTANDING INSTRUCTIONS AND FOLLOW UP APPOINTMENTS
[2022-08-28 12:41] VITALS: BP 107/63
[2022-08-28] MEDS ORDERED: ACET500 PO (13:41)
[2022-08-28] MEDS ORDERED: IBUP200 PO (13:41)
[2022-08-28 16:03] VITALS: BP 106/55
--- NOTE | 2022-08-28 18:05 | NUR ---
DISCHARGE TO HOME WITH NB NO QUESTIONS OR CONCERNS AT THIS TIME,
== END 2022-08-28 18:00 | disposition home or self-care (01) | DRG 807 ==
LOC: OBS 06:57 → BC 07:00 → OBS 07:28 → BC 07:29
PROVIDERS: ADMIT Advanced Practice Midwife
PROC: 10E0XZZ Delivery of Products of Conception, External Approach (ICD-10-PCS; principal; 2022-08-27)
PROC: 10907ZC Drainage of Amniotic Fluid, Therapeutic from Products of Conception, Via Natural or Artificial Opening (ICD-10-PCS; 2022-08-27)
PROC: 3E0R3BZ Introduction of Anesthetic Agent into Spinal Canal, Percutaneous Approach (ICD-10-PCS; 2022-08-27)
PROC: 00HU33Z Insertion of Infusion Device into Spinal Canal, Percutaneous Approach (ICD-10-PCS; 2022-08-27)
DX: O69.1XX0 Labor and delivery complicated by cord around neck, with compression, not applicable or unspecified (principal); Z37.0 Single live birth; Z3A.39 39 weeks gestation of pregnancy; O71.82 Other specified trauma to perineum and vulva; Z88.0 Allergy status to penicillin; Z88.8 Allergy status to other drugs, medicaments and biological substances; Z88.2 Allergy status to sulfonamides
CPT/HCPCS: 36415; 51702; 85025; 86850; 86900; 86901; A9270; J1885; J2210; J2590; J7120